=== PATIENT | female | born 1950 | race Caucasian/White ===

== ENCOUNTER → 2023-04-30 10:55 | Outpatient (BNVA) | payer MEDICAID, SELFPAY | PROVIDERS: PCP Registered Nurse; Visit Provider Registered Nurse | DX: Z13.6 Encounter for screening for cardiovascular disorders (principal); H26.9 Unspecified cataract; Z13.1 Encounter for screening for diabetes mellitus; Z13.29 Encounter for screening for other suspected endocrine disorder | CPT/HCPCS: 80053; 84443; 85025 ==

== ENCOUNTER → 2024-08-20 09:32 | Outpatient (BNVA) | payer MEDICAID, SELFPAY | PROVIDERS: PCP Registered Nurse; Visit Provider Registered Nurse | DX: R35.0 Frequency of micturition (principal) | CPT/HCPCS: 81000; 87086 ==

== ENCOUNTER 2024-08-25 10:27 | Emergency (ER) | payer MEDICAID, SELFPAY ==
[2024-08-25 10:48] VITALS: BP 174/96; PULSE 85; RESP 16; TEMP 36.8; O2SAT 96; BMI 28.7
[2024-08-25 11:07] LABS: Basophils # 0.1 10^3/uL (0.0-0.1); Eosinophils # 0.1 10^3/uL (0.0-0.8); Eosinophils % 0.8 %; Hematocrit 43.2 % (36-47); Lymphocytes # 1.5 10^3/uL (0.8-4.8); Lymphocytes % 24.6 %; Mean Corpuscular HGB Conc 32.9 g/dL (30-55); Mean Corpuscular Hemoglobin 30.1 pg (27-33); Mean Corpuscular Volume 91.7 fl (85-98); Mean Platelet Volume 11.3 fL (7.4-10.4); Monocytes # 0.4 10^3/uL (0.2-0.9); Monocytes % 6.4 %; Neutrophils # 4.11 10^3/uL (1.8-7.7); Neutrophils % 66.9 %; Nucleated Red Blood Cells % 0 %; Platelet Count 281 10^3/cmm (157-399); Red Blood Count 4.71 10^6/uL (3.85-5.65); Red Cell Distribution Width 12.7 % (12.1-15.1); White Blood Count 6.14 10^3/uL (3.29-11.43)
--- NOTE | 2024-08-25 11:17 | W.ED.ABDPA2 ---
HPI - Abdominal Pain General: Chief Complaint: Abdominal Pain Stated Complaint: abdominal pain Time Seen by Provider: 08/25/24 11:06 History of Present Illness: 74-year-old female presents emergency room with abdominal pain which he describes as intestinal problems for the last 3 weeks. She was like she has a difficult time with bowel movements. She has had some frequency urination was seen last week and evaluated in clinic the urine evaluation was normal at that time. She has not had any vomiting no hematochezia melena hematemesis or coffee-ground emesis. She had discolored stool today was greenish in nature. She has previously had a appendectomy. No fever sweats or chills. Associated Symptoms: Denies chills, dysuria and fever(s) Related Data Home Medications Medication Instructions Recorded Confirmed aspirin 325 mg tablet 650 mg PO Q6H PRN Pain 08/25/24 08/25/24 bismuth subsalicylate 262 mg 2 tab PO Q1H PRN Indigestion 08/25/24 08/25/24 chewable tablet (Pepto-Bismol) carica papaya (Papaya Enzyme 1 tab PO TID PRN Stomach Upset 08/25/24 08/25/24 tablet) lactobacillus combination no.4 3 3,000 mmu cells PO DAILY 08/25/24 08/25/24 billion cell capsule (Probiotic) multivitamin 1 tab PO DAILY 08/25/24 08/25/24 Allergies Allergy/AdvReac Type Severity Reaction Status Date / Time nickel Allergy Unknown Verified 08/20/24 09:10 norepinephrine Allergy ADR-Chest Verified 08/25/24 10:56 Pain Review of Systems Const: Denies: fever(s) or chills Card: Denies: chest pain Resp: Denies: dyspnea GI: Denies: abdominal pain : Denies: dysuria, urinary frequency or urinary urgency Musc: Denies: neck pain or back pain Skin/Breast: Denies: rash PFSH ED PFSH: Family History Sister Cancer breast Mother Tachycardia Parkinson disease Dementia Father Stroke Denies family history of Hypertension Social History Smoking and tobacco/nicotine status: never used tobacco/nicotine Alcohol intake: never Substance/Drug Use: never Adopted: No Caregiver/support person: No Lives independently: Yes service: No Current occupational status: retired Do you think of yourself as: Straight/Heterosexual Current gender identity: Female Physical Exam Const: GENERAL APPEARANCE: cooperative ORIENTATION/CONSCIOUSNESS: Yes awake, Yes oriented to person, Yes oriented to place and Yes oriented to time HENMT: COMMON NORMALS: normocephalic, atraumatic and hearing grossly normal bilaterally HEAD & SCALP: normocephalic and atraumatic Resp: COMMON NORMALS: normal respiratory effort, No retractions, No use of accessory muscles and clear to auscultation bilaterally AUSCULTATION: clear to auscultation bilaterally Cardio: COMMON NORMALS: regular rate, regular rhythm and No murmurs present (Cardio) RATE: regular rate RHYTHM: regular rhythm GI: COMMON NORMALS: Soft to palpation and No hepatosplenomegaly present AUSCULTATION: Yes normoactive bowel sounds PALPATION: Yes Soft to palpation, No Tenderness to palpation present (GI), No Guarding due to palpation present (GI) and Yes No hepatosplenomegaly present Extremity: COMMON NORMALS: normal to inspection, capillary refill normal, no clubbing, cyanosis or edema, no calf tenderness and no pedal edema Neuro: SENSORIUM/ORIENTATION: Yes oriented to person, Yes oriented to place and Yes oriented to time Skin: COMMON NORMALS: no rashes or lesions noted GENERAL SKIN EXAM: no rashes or lesions noted Course Vital Signs: Vital signs: Vital Signs Temperature 98.2 F 08/25/24 10:48 Pulse Rate 85 08/25/24 10:48 Respiratory Rate 16 08/25/24 10:48 Blood Pressure 174/96 08/25/24 10:48 Pulse Oximetry 96 08/25/24 10:48 Oxygen Delivery Me thod Room Air 08/25/24 10:48 MDM - Abdominal Pain Medical Decision Making Labs not show any clinically significant normalities CT is negative. Discharge patient home liquid diet for 24 to 40 hours and advance as tolerated no emergent findings noted. Medical Records I reviewed the patient's medical records. Lab Data I reviewed the patient's lab results. 08/25/24 10:58 08/25/24 10:58 Labs/Radiology: Radiology Impressions Abdomen/Pelvis CT 08/25/24 11:18 IMPRESSION: 1. Normal appendix. 2. No renal obstruction or calcifications. 3. Minimally distended urinary bladder with no intraluminal calcification. 4. No diverticulosis. 5. No ascites or adenopathy. Laboratory Results WBC 6.14 10^3/uL (3.29-11.43) 08/25/24 10:58 RBC 4.71 10^6/uL (3.85-5.65) 08/25/24 10:58 Hgb 14.20 g/dL (11.27-16.99) 08/25/24 10:58 Hct 43.2 % (36-47) 08/25/24 10:58 MCV 91.7 fl (85-98) 08/25/24 10:58 MCH 30.1 pg (27-33) 08/25/24 10:58 MCHC 32.9 g/dL (30-55) 08/25/24 10:58 RDW 12.7 % (12.1-15.1) 08/25/24 10:58 Plt Count 281 10^3/cmm (157-399) 08/25/24 10:58 MPV 11.3 fL (7.4-10.4) H 08/25/24 10:58 Neut % (Auto) 66.9 % 08/25/24 10:58 Lymph % (Auto) 24.6 % 08/25/24 10:58 [place] % (Auto) 6.4 % 08/25/24 10:58 Eos % (Auto) 0.8 % 08/25/24 10:58 Baso % (Auto) 1.0 % 08/25/24 10:58 Neut # (Auto) 4.11 10^3/uL (1.8-7.7) 08/25/24 10:58 Lymph # (Auto) 1.5 10^3/uL (0.8-4.8) 08/25/24 10:58 [place] # (Auto) 0.4 10^3/uL (0.2-0.9) 08/25/24 10:58 Eos # (Auto) 0.1 10^3/uL (0.0-0.8) 08/25/24 10:58 Baso # (Auto) 0.1 10^3/uL (0.0-0.1) 08/25/24 10:58 Nucleated RBC % (auto) 0 % 08/25/24 10:58 Nucleated RBCs # 0.0 /100WBC 08/25/24 10:58 Sodium 141 mmol/L (136-145) 08/25/24 10:58 Potassium 4.3 mmol/L (3.5-5.1) 08/25/24 10:58 Chloride 101 mmol/L (98-107) 08/25/24 10:58 Carbon Dioxide 27 mmol/L (22-29) 08/25/24 10:58 Anion Gap 17.3 (5-19) 08/25/24 10:58 BUN 10 mg/dL (8-23) 08/25/24 10:58 Creatinine 0.9 mg/dL (0.5-0.9) 08/25/24 10:58 GFR Calculation Not Reportable 08/25/24 10:58 Glucose 121 mg/dL (65-115) H 08/25/24 10:58 Calculated Osmolality 292 mOsm/kg (285-295) 08/25/24 10:58 Calcium 9.9 mg/dL (8.5-10.5) 08/25/24 10:58 Total Bilirubin 0.4 mg/dL (0.15-1.2) 08/25/24 10:58 AST 19 U/L (0-32) 08/25/24 10:58 ALT 15 U/L (0-33) 08/25/24 10:58 Alkaline Phosphatase 87 U/L (35-105) 08/25/24 10:58 Total Protein 7.4 g/dL (6.6-8.7) 08/25/24 10:58 Albumin 4.3 g/dL (3.5-5.2) 08/25/24 10:58 Globulin 3.1 g/dL (1.3-4.6) 08/25/24 10:58 Lipase 31 U/L (13-60) 08/25/24 10:58 Urine Color Yellow (Yellow) 08/25/24 11:50 Urine Appearance Clear (CLEAR) 08/25/24 11:50 Urine pH 7.5 (5-7) 08/25/24 11:50 Ur Specific [place] 1.005 (1.005-1.030) 08/25/24 11:50 Urine Protein Negative (Negative) 08/25/24 11:50 Urine Glucose (UA) Negative (Normal) 08/25/24 11:50 Urine Ketones Negative (Negative) 08/25/24 11:50 Urine Blood Negative (Negative) 08/25/24 11:50 Urine Nitrate Negative (Negative) 08/25/24 11:50 Urine Bilirubin Negative (Negative) 08/25/24 11:50 Urine Urobilinogen 0.2 mg/dL (Negative) 08/25/24 11:50 Ur Leukocyte Esterase Trace (Negative) A 08/25/24 11:50 Urine RBC 0-2 /hpf (0-2) 08/25/24 11:50 Urine WBC 0-5 /hpf (0-5) 08/25/24 11:50 Ur Squamous Epith Cells 0-5 /hpf (0-5) 08/25/24 11:50 Amorphous Sediment Not Reportable 08/25/24 11:50 Urine Bacteria None seen /hpf (NONE) 08/25/24 11:50 Hyaline Casts 0-4 /lpf H 08/25/24 11:50 All radiology interpretation(s) finalized by discharge Discharge Plan Discharge Patient Disposition: Home Clinical Impression: Abdominal pain Condition: Stable Prescriptions: No Action multivitamin Tablet 1 tab PO DAILY carica papaya [Papaya Enzyme] Tablet 1 tab PO TID PRN (Reason: Stomach Upset) Rx Instructions: administer with meals aspirin 325 mg Tablet 650 mg PO Q6H PRN (Reason: Pain) bismuth subsalicylate [Pepto-Bismol] 262 mg Tablet,Chewable 2 tab PO Q1H PRN (Reason: Indigestion) Rx Instructions: do not exceed 16 tabs per 24 hrs Probiotic 3 billion cell Capsule 3,000 mmu cells PO DAILY Rx Instructions: administer with a meal Discharge Orders: Discharge ED (Routine); Ordered 08/25/24 Ordered By: Milton Villalta Referrals: Evelio Orosco FNP [Primary Care Provider] - Discharge Diet: Usual diet Discharge Activity: Resume usual activity Patient Instructions: Abdominal Pain (ED), Opioid Safety, Pain Management Activity Restrictions/Additional Instructions: Thank you for choosing [facility] for your healthcare needs today. It is very important that you follow up as instructed or that you return to the Emergency Department should you have concerns or if your condition changes or worsens in any way. You were seen in the emergency room with complaint of abdominal discomfort. Your laboratory test did not show any clinically significant abnormalities. CT was unremarkable for acute pathology. Suspect it is bowel cramping or gastroenteritis. Follow-up with your primary care doctor. Recommend 24 to 48 hours of liquid diet and advance as tolerated Coding Level of Care Code ED Director Of Women'S Services for Jena Palmer
--- NOTE | 2024-08-25 11:18 | CT_ITS ---
WS: [id number] CT ABDOMEN AND PELVIS NONCONTRAST HISTORY: Abdominal pain, pain lower abdomen and LEFT lower quadrant. TECHNIQUE: Imaging performed through the abdomen and pelvis. Coronal and sagittal reformats are submi tted. All CT scans at [facility] use at least one of these dose optimization techniques: auto mated exposure control; mA and/or kV adjustment per patient size (includes targeted exams where dose is matched to clinical indication); or iterative reconstruction. DLP: 854.15 mGy.cm COMPARISON: None available. Lower thorax: Lung bases are clear. Visualized heart is normal. No hiatal hernia. Liver: Normal size liver. Low-attenuation mass posterior to the gallbladder fossa measures 7 mm. This is probably a cyst or benign hemangioma. Gallbladder: Normal gallbladder. No pericholecystic fluid or cholelithiasis. No gallbladder wall thic kening. Pancreas: Normal size and attenuation. Normal pancreatic duct. No pancreatitis or mass. Spleen: Normal. Adrenal glands: Normal. No mass. Right kidney: Normal size kidney with no mass or hydronephrosis. Left kidney: Normal size kidney with no mass or hydronephrosis. Aorta: Mild atherosclerosis abdominal aorta with no aneurysm. No free fluid, intraperitoneal air or significant lymphadenopathy. GI tract: No GI tract obstruction. Prior appendectomy. No colitis. No significant diverticular diseas e. Abdominal wall: Small umbilical hernia contains fat only. Pelvis: No free fluid or adenopathy in the pelvis. Urinary bladder is only minimally distended. No ca lcifications or wall thickening identified. Osseous structures: Advanced degenerative disc disease at L4-5. Loss of disc space with large anterio r bridging osteophytes and facet arthritis. Sclerotic bone island RIGHT ilium. CT/CT abdomen pelvis wo con [id number] IMPRESSION: 1. Normal appendix. 2. No renal obstruction or calcifications. 3. Minimally distended urinary bladder with no intraluminal calcification. 4. No diverticulosis. 5. No ascites or adenopathy.
[2024-08-25 11:27] LABS: Alanine Aminotransferase 15 U/L (0-33); Albumin Level 4.3 g/dL (3.5-5.2); Alkaline Phosphatase 87 U/L (35-105); Anion Gap 17.3 (5-19); Aspartate Amino Transferase 19 U/L (0-32); Blood Urea Nitrogen 10 mg/dL (8-23); Calcium 9.9 mg/dL (8.5-10.5); Carbon Dioxide 27 mmol/L (22-29); Chloride 101 mmol/L (98-107); Creatinine Clr Calc Pharmacy 71.2719; Globulin 3.1 g/dL (1.3-4.6); Glucose 121 mg/dL (65-115); Lipase 31 U/L (13-60); Osmolality Calculated 292 mOsm/kg (285-295); Potassium 4.3 mmol/L (3.5-5.1); Sodium 141 mmol/L (136-145); Total Bilirubin 0.4 mg/dL (0.15-1.2); Total Protein 7.4 g/dL (6.6-8.7)
[2024-08-25 12:08] LABS: Bilirubin Urine Negative (Negative); Blood Urine Negative (Negative); Glucose Urine UA Negative (Normal); Ketones Urine Negative (Negative); Leukocyte Esterase Urine Trace (Negative); Nitrate Urine Negative (Negative); Protein Urine Negative (Negative); Specific Gravity, Urine 1.005 (1.005-1.030); Urine Appearance Clear (CLEAR); Urine Color Yellow (Yellow); Urobilinogen Urine 0.2 mg/dL (Negative); pH Urine 7.5 (5-7)
[2024-08-25 12:13] LABS: Add Urine Microscopic? YES; Bacteria Urine None Seen /hpf; Hyaline Casts Urine 0-4 /lpf; RBC Urine 0-2 /hpf (0-2); Squamous Epithelial Cell Urine 0-5 /hpf (0-5); WBC Urine 0-5 /hpf (0-5)
[2024-08-25 12:14] LABS: Add Urine Culture? No
== END 2024-08-25 13:30 | disposition home or self-care (01) ==
PROVIDERS: Physician Assistant; Emergency Provider Family Medicine; PCP Registered Nurse
DX: R10.9 Unspecified abdominal pain (principal)
CPT/HCPCS: 36415; 74176; 80053; 81001; 83690; 85025; 99284

== ENCOUNTER → 2024-11-10 11:35 | Outpatient (BNVA) | payer MEDICAID, SELFPAY | PROVIDERS: PCP Registered Nurse; Visit Provider Registered Nurse | DX: R35.0 Frequency of micturition (principal) | CPT/HCPCS: 81000 ==

== ENCOUNTER → 2024-11-19 08:45 | Outpatient (BNVA) | payer MEDICAID, SELFPAY | PROVIDERS: PCP Registered Nurse; Visit Provider Student in an Organized Health Care Education/Training Program | DX: R19.4 Change in bowel habit (principal); R10.9 Unspecified abdominal pain | CPT/HCPCS: 99204 ==

== ENCOUNTER 2024-12-08 07:08 | Day surgery (SDC) | payer MEDICAID, SELFPAY ==
[2024-12-08 07:40] VITALS: BP 153/90; PULSE 93; RESP 18; TEMP 36.4; O2SAT 97; BMI 26.4
--- NOTE | 2024-12-08 07:59 | P.ANESASSM_ITS ---
Pre-Anesthetic Assessment Height/Weight: Height 1.83 m Weight 88.451 kg Temp Pulse Resp BP Pulse Ox O2 Del Method 97.5 F L 93 18 153/90 97 Room Air 12/08/24 07:40 12/08/24 07:40 12/08/24 07:40 12/08/24 07:40 12/08/24 07:40 12/08/24 07:40 Preop Diagnosis: GI Issues Operation Date: 12/08/24 08:30 Proposed Procedures p Colonoscopy 79689, G0105, R19.4(Not Applicable) - Lukas Ramirez MD Familial anesthetic complications: none Was Beta Jodi taken within 24 hours: N/A Was Clonidine taken within 24 hours: N/A Last intake: Intake Last Liquid Date 12/07/24 Last Liquid Time 22:00 Last Solid Date 12/06/24 Last Solid Time 20:00 Social No alcohol and No tobacco Exam alert, oriented x 3, clear to auscultation bilaterally and regular rate & rhythm Airway Submandibular: within normal limits Cervical ROM: within normal limits Mallampati: Class II Dentition: partials History/ROS No significant history except as noted and No significant complaints Pulmonary None reported CV/HEM None reported None reported Hepatic None reported GI None reported Metabolic Thyroid Disease [facility]/skel None reported Neuropsych Anxiety Anesthetic Plan ASA status: 2 Anesthesia: MAC Risk of > 500 ml blood loss (7ml/kg in children): No Medications/Allergies Home Medications ?Medication ?Instructions ?Recorded ?Confirmed ?Last Taken ?Type aspirin 325 mg tablet 650 mg PO Q6H PRN Pain 08/2512/08/24 1 Week Ago History ~12/01/24 carica papaya (Papaya Enzyme 1 tab PO TID PRN Stomach Upset 08/25/24 12/08/24 1 Week Ago History tablet) ~12/01/24 lactobacillus combination no.4 3 3,000 mmu cells PO DA [place] 08/25/24 12/08/24 12/07/24 History billion cell capsule (Probiotic) multivitamin 1 tab PO DAILY 08/25/24 05/0 01/2712/06/24 History minerals 1 tab PO DAILY 12/08/24 05/0 01/2712/07/24 History omega-3 fatty acids 1 cap PO DAILY 12/08/24 05/0 01/2712/07/24 History vit B complex vit C no.7 300 1 cap PO DAILY 12/08/24 0 12/08/24 12/07/24 History mg-folic acid 400 mcg-minerals capsule Allergies Allergy/AdvReac Type Severity Reaction Status Date / Time nickel Allergy Unknown Verified 12/02/24 09:45 norepinephrine Allergy ADR-Chest Verified 12/02/24 09:45 Pain PFSH Anesthesia Family History Sister Cancer breast Mother Tachycardia Parkinson disease Dementia Father Stroke Denies family history of Hypertension Social History Smoking and tobacco/nicotine status: never used tobacco/nicotine Alcohol intake: never Substance/Drug Use: never Adopted: No Caregiver/support person: No Lives independently: Yes service: No Current occupational status: retired Do you think of yourself as: Straight/Heterosexual Current gender identity: Female
[2024-12-08] MEDS: sodium chloride 0.9% 1,000 ML 15 ML IV (08:00)
--- NOTE | 2024-12-08 08:26 | W.PM.OPSUD ---
Surgery/Procedure H&P Update DATE OF PROCEDURE: December 08, 2024 DATE H&P PERFORMED: 11/19/24 H&P UPDATE INFORMATION: I have reviewed H&P completed within last 30 days, I have examined patient prior to procedure and No changes to prior documentation PREOP DIAGNOSIS: GI Issues PLANNED PROCEDURE: Operation Date: 12/08/24 08:30 Proposed Procedures p Colonoscopy 57682, G0105, R19.4(Not Applicable) - Lukas Ramirez MD
[2024-12-08 08:55] VITALS: BP 115/58; PULSE 73; RESP 18; TEMP 36.4; O2SAT 95
[2024-12-08 09:15] VITALS: BP 109/72; PULSE 67; RESP 18; O2SAT 96
[2024-12-08 09:22] VITALS: BP 110/80; PULSE 70; RESP 18; O2SAT 96
--- NOTE | 2024-12-08 09:35 | ANE.PACU2 ---
Inpatient post-anesthesia follow up: Airway intact: Yes Vital signs: Temperature 97.6 F Pulse Rate 70 Respiratory Rate 18 Blood Pressure 110/80 Pulse Oximetry 96 Oxygen Delivery Me thod Room Air Oxygen Flow Rate Fraction of Inspir ed Oxygen Hydration adequate: Yes Nausea and vomiting: No Pain level: 1 Mental status: Baseline
== END 2024-12-08 09:35 | disposition home or self-care (01) ==
PROVIDERS: PCP Registered Nurse; Visit Provider Student in an Organized Health Care Education/Training Program
PROC: 0DJD8ZZ Inspection of Lower Intestinal Tract, Via Natural or Artificial Opening Endoscopic (ICD-10-PCS; CPT 45378; principal; 2024-12-08 08:30)
DX: R19.7 Diarrhea, unspecified (principal); K59.00 Constipation, unspecified
CPT/HCPCS: 45378; J2704; J7030

== ENCOUNTER 2025-02-06 12:24 | Emergency (ER) | payer MEDICAID, SELFPAY ==
--- OUTSIDE RECORDS SUMMARY | 2025-02-06 12:28 | XMS_ITS | Clinical Summary ---
Author Organization [facility] Address [address] [place] [address] Phone Care Team Providers Care Revenue Inspector Name Role Phone Non-Staff, Physician Primary Care Provider Unava ilable Allergies No known active allergies Medications omeprazole (PRILOSEC) 10 mg Oral CpDR Take 10 mg by mouth daily. Active MULTIVITS,CA,SILK SPOOLER ALS/IRON/FA (CHILDREN'S MULTIVITAMINS ORAL) Take 1 Tab by mouth daily. Active Active Problems Problem Noted Date Diagnosed Date Neck pain 07/11/2011 Family History Medical History Relation Name Comments Hypertension Father Stroke Father Cancer Sister 1 Diabetes Sister 2 Relation Name Status Comments Father Sister 1 Sister 2 Social History Tobacco Use Types Packs/Day Years Used Date Smoking Tobacco: Never Alcohol Use Standard Drinks/Week Comments No 0 (1 standard drink = 0.6 oz pur e alcohol) Comments No Sex and Gender Information Value Date Recorded Sex Assigned at Not on file Legal Sex Female 1:08 PM CAR JOCKEY Gender Identity Not on file Sexual Orientation Not on file Last Filed Vital Signs Vital Sign Reading Time Taken Comments Blood Pressure 127/79 07/11/2011 2:31 PM CAR JOCKEY Pulse 98 07/11/2011 2:31 PM CAR JOCKEY Temperature 36.8 C (98.2 F) 07/11/2011 2:31 PM CAR JOCKEY Respiratory Rate 20 07/11/2011 2:31 PM CAR JOCKEY Oxygen Saturation 98% 07/11/2011 2:31 PM CAR JOCKEY Inhaled Oxygen Concentration - - Weight 83.9 kg (185 lb) 07/11/2011 2:31 PM CAR JOCKEY Height 182.9 cm (6') 07/11/2011 2:31 PM CAR JOCKEY Body Mass Index 25.09 07/11/2011 2:31 PM CAR JOCKEY Plan of Treatment Health Maintenance Due Date Last Done Comments DTAP/TDAP/TD VACCINES (1 - Tdap) 1969 BREAST CANCER SCREENING 1990 COLORECTAL SCREENING 1995 Colorectal Cancer Screening 1995 FIT-DNA Q 3 years 1995 FIT/FOBT Q 1 year 1995 Flex Sig/CT Colonography Q 5 years 1995 PNEUMOCOCCAL VACCINE 50+ YEARS (1 of 1 - PCV) 05/29/20 00 ZOSTER VACCINE (1 of 2) 2000 OSTEOPOROSIS SCREENING 2015 INFLUENZA VACCINE (#1) 2024 RSV VACCINE (60+ or ) (1 - 1-dose 75+ series) 2025 Care Teams Revenue Inspector Relationship Specialty Start Date End Date Non-Staff, Physician NO ADDRESS ON FILE PCP - General 06/29/11
--- OUTSIDE RECORDS SUMMARY | 2025-02-06 12:28 | XMS_ITS | Encounter Summary ---
Author Organization [facility] Address [address] [place] [address] Care Team Providers Care Gathering Machine Setter Name Role Phone Non-Staff, Physician Primary Care Provider Unava ilable Encounter Details Date Type Department Care Team (Late st Contact Info) Description 12/13/2012 Ancillary Orders [facility] General Laboratory Services [place] [address] [place] [address] Social History Tobacco Use Types Packs/Day Years Used Date Smoking Tobacco: Never Alcohol Use Standard Drinks/Week Comments No 0 (1 standard drink = 0.6 oz pur e alcohol) Comments No Sex and Gender Information Value Date Recorded Sex Assigned at Not on file Legal Sex Female 1:08 PM SCREW MACHINE TOOL SETTER Gender Identity Not on file Sexual Orientation Not on file documented as of this encounter Plan of Treatment Not on file documented as of this encounter Procedures Procedure Name Priority Date/Time Associated Diagnosis Comments CBC WITHOUT DIFFERENTIAL Routine 12/13/2012 8:00 AM CDT ALT Routine 12/13/2012 8:00 AM CDT TSH Routine 12/13/2012 8:00 AM CDT HEMOGLOBIN A1C Routine 12/13/2012 8:00 AM CDT CREATININE Routine 12/13/2012 8:00 AM CDT LIPID PANEL Routine 12/13/2012 8:00 AM CDT documented in this encounter Results * CREATININE (12/13/2012 8:00 AM CDT) CREATININE 0.80 0.60 - 1.30 mg/dL 12/13/2012 5:22 PM CDT [facility] GFR 73 >=60 mL/min/1.7 3 sq meter 12/13/2012 5:22 PM CDT [facility] GFR, 88 >=60 mL/min/1.7 3 sq meter 12/13/2012 5:22 PM CDT [facility] Blood specimen (specimen) 12/13/2012 8:00 AM CDT 12/13/2012 4:26 PM CDT Narrative [facility] - 12/13/2012 5:22 PM CDT eGFR has not been validated for use in the elderly (> 70 years of age), women, patients with serious co-morbid conditions, or persons with extremes of body size or muscle mass and should also be interpreted with caution in patients with acute kidney failure, dialysis dependant patients, patients reporting exceptional dietary intake (e.g. vegetarian diet, high protein diets, creatine supplementation), and patients with severe liver disease. Based on National Kidney Disease Education Program us External Provider Mtnv CHEMISTRY ORDERABLES l Result Performing Organization Address [facility] Co de Phone Number [facility] CLIA # [id number] [address] [place] [phone] * (ABNORMAL) ALT (12/13/2012 8:00 AM CDT) ALT 22(L) 30 - 65 U/L 12/13/2012 5:22 PM CDT [facility] Blood specimen (specimen) 12/13/2012 8:00 AM CDT 12/13/2012 4:26 PM CDT External Provider Mtn CHEMISTRY ORDERABLES l Result Performing Organization Address City/[facility] Co de Phone Number [facility] CLIA # [id number] [address] [place] [phone] * (ABNORMAL) CBC WITHOUT DIFFERENTIAL (12/13/2012 8:00 AM CDT) WBC 5.3 4.0 - 10.0 K/uL 12/15/2012 12:53 PM CDT [facility] RBC 4.39 3.93 - 5.22 M/uL 12/15/2012 12:53 PM CDT [facility] HEMOGLOBIN 13.6 11.2 - 15.7 g/dL 12/15/2012 12:53 PM CDT [facility] HEMATOCRIT 42.2 34.1 - 44.9 % 12/15/2012 12:53 PM CDT [facility] MCV 96.1(H) 79.4 - 94.8 fL 12/15/2012 12:53 PM CDT [facility] MCH 31.0 25.6 - 32.2 pg 12/15/2012 12:53 PM CDT [facility] MCHC 32.2 32.2 - 35.5 g/dL 12/15/2012 12:53 PM CDT [facility] PLATELETS 275 163 - 337 K/uL 12/15/2012 12:53 PM CDT [facility] MPV 13.4 10.0 - 14.8 fL 12/15/2012 12:53 PM CDT [facility] RDW 14.0 11.0 - 14.5 % 12/15/2012 12:53 PM CDT [facility] RDW-STDEV 47.9 37.0 - 54.0 fL 12/15/2012 12:53 PM CDT [facility] Blood specimen (specimen) 12/13/2012 8:00 AM CDT 12/15/2012 12:15 PM CDT us External Provider Mtnv HEMATOLOGY ORDERABLES Fin al Result [facility] CLIA # [id number] [address] [place] [phone] * TSH (12/13/2012 8:00 AM CDT) TSH 2.04 0.30 - 4.80 uIU/mL 12/13/2012 5:22 PM CDT [facility] [place] [facility] Blood specimen (specimen) 12/13/2012 8:00 AM CDT 12/13/2012 4:26 PM CDT External Provider Mtnv CHEMISTRY ORDERABLES l Result Performing Organization Address City/[facility]/ZIP Co de Phone Number [facility] CLIA # [id number] [address] [place] [phone] * HEMOGLOBIN A1C (12/13/2012 8:00 AM CDT) HEMOGLOBIN A1C 6.0 4.5 - 6.2 % 12/15/2012 1:11 PM CDT [facility] [place] [facility] EST. AVG GLUCOSE, A1C 126 mg/dL 12/15/2012 1:11 PM CDT [facility] Blood specimen (specimen) 12/13/2012 8:00 AM CDT 12/15/2012 1:10 PM CDT External Provider Mtnv CHEMISTRY ORDERABLES l Result Performing Organization Address [facility] Co de Phone Number [facility] CLIA # [id number] [address] [place] [phone] * (ABNORMAL) LIPID PANEL (12/13/2012 8:00 AM CDT) CHOLESTEROL 181 130 - 200 mg/dL 12/13/2012 5:22 PM CDT [facility] [place] [facility] TRIGLYCERIDE 68 30 - 200 mg/dL 12/13/2012 5:22 PM CDT [facility] [place] [facility] HDL 58 35 - 80 mg/dL 12/13/2012 5:22 PM CDT [facility] [place] [facility] LDL CALCULATED 109(H) 0 - 100 mg/dL 12/13/2012 5:22 PM CDT [facility] [place] [facility] Blood specimen (specimen) 12/13/2012 8:00 AM CDT 12/13/2012 4:26 PM CDT Narrative [facility] SERVICES - [place] - 12/13/2012 5:22 PM CDT TOTAL CHOLESTEROL mg/dL Desirable <200 Borderline high 200-239 High >=240 TRIGLYCERIDES mg/dL Normal <150 Borderline high 150-199 High 200-499 Very high >=500 HDL CHOLESTEROL mg/dL Low <40 Normal 40-60 Desirable >60 LDL CHOLESTEROL mg/dL Optimal <100 Low risk 100-129 Borderline high 130-159 High 160-189 Very high >=190 Based on AHA/NCEP Guidelines us External Provider Mtnv CHEMISTRY ORDERABLES l Result [facility] SERVICES [facility] CLIA # [id number] [address] [place] [address] documented in this encounter Visit Diagnoses Not on filedocumented in this encounter Care Teams Gathering Machine Setter Relationship Specialty Start Date End Date Non-Staff, Physician NO ADDRESS ON FILE PCP - General 06/29/11 documented as of this encounter
--- OUTSIDE RECORDS SUMMARY | 2025-02-06 12:28 | XMS_ITS | Clinical Summary ---
Author Organization [facility] Address [address] [place]: Epic Prelude ADT LANI SAAVEDRA [address] Care Team Providers Care Newscast Director Name Role Phone Non-Staff, Physician Primary Care Provider Unava ilable Allergies Active Allergy Reactions Criticality Noted Date Comments Nickel Unknown 06/11/2023 Norepinephrine Palpitations Low 07/05/2023 Medications Bilberry 100 mg Capsule Take 1 Capsule by mouth daily. Active Vit C-Vit T-Jcipkk-MoEu-L utein (PRESERVISION) 226-90-0.8-5 mg Capsule Take 1 Capsule by mouth daily. Active Saccharomyces boulardii (FLORASTOR) 250 mg Capsule Take by mouth. Acti ve zinc sulfate 110 mg (25 mg zinc) Tablet Take 110 mg by mouth one time only. Active cholecalciferol , vitamin D3, 5,000 unit Take 400 Units by mouth daily. Active omeprazole (PriLOSEC) 10 mg Capsule, Delayed Release(E.C.) Take 10 mg by mouth daily. Active ofloxacin (OCUFLOX) 0.3 % solution 1 Drop by See Admin Instructions route 4 times daily. Active Active Problems Problem Noted Date Diagnosed Date Neck pain 07/11/2011 Encounters Date Type Department Care Team Description 01/26/2025 External Device Data [facility] ABSTRACTION Provider, Abstract 01/19/2025 External Device Data [facility] ABSTRACTION Provider, Abstract 12/29/2024 External Device Data [facility] ABSTRACTION Provider, Abstract 12/24/2024 External Device Data [facility] ABSTRACTION Provider, Abstract 12/23/2024 External Device Data [facility] ABSTRACTION Provider, Abstract 12/23/2024 External Device Data [facility] ABSTRACTION Provider, Abstract 12/22/2024 External Device Data [facility] ABSTRACTION Provider, Abstract from Last 3 Months Family History Medical History Relation Name Comments Hypertension Father Stroke Father Diabetes Sister 1 Cancer Sister 2 Relation Name Status Comments Father Sister 1 Sister 2 Social History Tobacco Use Types Packs/Day Years Used Date Smoking Tobacco: Never Alcohol Use Standard Drinks/Week Comments No 0 (1 standard drink = 0.6 oz pur e alcohol) Feeling Safe Answer Date Recorded Are you in a relationship wi th someone who hurts you emotionally and/or physically? 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 Gender Identity Not on file Sexual Orientation Not on file Last Filed Vital Signs Vital Sign Reading Time Taken Comments Blood Pressure 149/70 02/26/2024 11:47 AM CDT Pulse 71 02/26/2024 11:47 AM CDT Temperature 36.2 C (97.1 F) 02/26/2024 11:47 AM CDT Respiratory Rate 16 02/26/2024 11:47 AM CDT Oxygen Saturation 99% 02/26/2024 11:47 AM CDT Inhaled Oxygen Concentration - - Weight 93.4 kg (206 lb) 02/26/2024 9:14 AM CDT Height 182.9 cm (6') 02/26/2024 9:14 AM CDT Body Mass Index 27.94 02/26/2024 9:14 AM CDT Plan of Treatment Health Maintenance Due Date [...] 2000 OSTEOPOROSIS SCREENING 2015 INFLUENZA VACCINE (#1) 2025 RSV VACCINE (60+ or ) (1 - 1-dose 75+ series) 2025 Medical Devices Implanted Type Area Maintenance Groundskeeper Device Identifier Shelf Expiration Date Model / Serial / Lot Lens Iol Madhavi Blake 19.0 [id number] - [id number] Implanted:Qty: 1 on 07/10/2023 by Clive Landers MD at [facility] Lens Right: Eye [employer] 01/29/2026 [id number] / [id number] / Lens Iol Madhavi Blake 19.5 [id number] - [id number] Implanted:Qty: 1 on 02/26/2024 by Clive Landers MD at [facility] Lens Left: Eye [employer] 01/30/2026 [id number] / [id number] / Insurance MEDICAID [place] Advance Directives For more information, please contact: [phone] * Full Code (Latest Code Status on File) Date Activated Date Inactivated Comments 02/26/2024 11:12 AM 02/26/2024 1:58 PM Care Teams Newscast Director Relationship Specialty Start Date End Date Non-Staff, Physician NO ADDRESS ON FILE PCP - General 06/29/11
[2025-02-06 12:43] VITALS: BP 163/75; PULSE 96; RESP 17; TEMP 37.1; O2SAT 99; BMI 26.4
[2025-02-06 13:33] LABS: Glucose Urine UA Negative (Normal); Nitrate Urine Negative (Negative); Specific Gravity, Urine 1.005 (1.005-1.030)
[2025-02-06 13:37] LABS: Add Urine Microscopic? YES
[2025-02-06 13:41] LABS: Hematocrit 43.7 % (36-47); Hemoglobin 13.80 g/dL (11.27-16.99); Mean Corpuscular HGB Conc 31.6 g/dL (30-55); Mean Corpuscular Hemoglobin 30.5 pg (27-33); Mean Corpuscular Volume 96.5 fl (85-98); Nucleated Red Blood Cells % 0 %; Platelet Count 279 10^3/cmm (157-399); Red Blood Count 4.53 10^6/uL (3.85-5.65); White Blood Count 8.57 10^3/uL (3.29-11.43)
[2025-02-06 13:59] LABS: Alanine Aminotransferase 11 U/L (0-33); Albumin Level 4.0 g/dL (3.5-5.2); Alkaline Phosphatase 86 U/L (35-105); Anion Gap 15.4 (5-19); Aspartate Amino Transferase 14 U/L (0-32); Blood Urea Nitrogen 16 mg/dL (8-23); Calcium 9.6 mg/dL (8.5-10.5); Carbon Dioxide 26 mmol/L (22-29); Chloride 100 mmol/L (98-107); Creatinine Clr Calc Pharmacy 68.6016; Globulin 3.4 g/dL (1.3-4.6); Glucose 136 mg/dL (65-115); Lipase 32 U/L (13-60); Osmolality Calculated 287 mOsm/kg (285-295); Potassium 4.4 mmol/L (3.5-5.1); Sodium 137 mmol/L (136-145); Total Protein 7.4 g/dL (6.6-8.7)
[2025-02-06 14:28] VITALS: BP 181/100; PULSE 60; RESP 16; O2SAT 98
[2025-02-06 14:30] VITALS: BP 181/100; O2SAT 99
--- NOTE | 2025-02-06 14:39 | ED_ITS ---
HPI - Abdominal Pain 2 General: Chief Complaint: Abdominal Pain Stated Complaint: abd pain Time Seen by Provider: 02/06/25 14:24 History of Present Illness: 74-year-old female presents emergency ro om complaining of intermittent chronic abdominal pain this been going on it was only for 1 to 2 years. She has had extensive workup including EGD colonoscopy CT has not had any significant findings as at times of large bowel movement she feels very weak afterwards other times feels like she has bladder infection. She denies any medic easy melena hematemesis or coffee-ground emesis. She relates some of her symptoms of feeling almost as if she is having menstrual cramps she has not had any vaginal bleeding she denies any chest pain. There is no acute abdominal pain at this time. No fever sweats or chills Associated Symptoms: Reports nausea and vomiting; Denies chills, dysuria and fever(s) Related Data Home Medications ?Medication ?Instructions ?Recorded ?Confirmed aspirin 325 mg tablet 650 mg PO Q6H PRN Pain 08/2501/26/25 carica papaya (Papaya Enzyme 1 tab PO TID PRN Stomach Upset 08/25/24 01/26/25 tablet) lactobacillus combination no.4 3 3,000 mmu cells PO DA KAROLINA 08/25/24 01/26/25 billion cell capsule (Probiotic) multivitamin 1 tab PO DAILY 08/25/2401/04 minerals 1 tab PO DAILY 12/08/2401/04 omega-3 fatty acids 1 cap PO DAILY 12/08/2401/04 vit B complex vit C no.7 300 1 cap PO DAILY 12/08/24 0 01/26/25 mg-folic acid 400 mcg-minerals capsule daily blend I PO 2XD 01/26/25 digest forte PO 1XD 01/26/25 docosahexaenoic acid 200 mg mg PO 01/26/25 01/26/25 capsule (Algal Orland-3 DHA) mineral blend PO 1XD 01/26/25 Previous Rx's ?Medication ?Instructions ?Recorded pantoprazole 40 mg tablet,delayed 40 mg PO DAILY #30 t abs 02/06/25 release Allergies Allergy/AdvReac Type Severity Reaction Status Date / Time nickel Allergy Unknown Verified 01/26/25 13:03 norepinephrine Allergy ADR-Chest Verified 01/26/25 13:03 Pain Review of Systems 2 Const: Denies: fever(s) or chills Card: Denies: chest pain Resp: Denies: dyspnea GI: Reports: abdominal pain, nausea and vomiting : Denies: dysuria, urinary frequency or urinary urgency Musc: Denies: neck pain or back pain Skin/Breast: Denies: rash PFSH ED 2 PFSH: Family History Sister Cancer breast Mother Tachycardia Parkinson disease Dementia Father Stroke Denies family history of Hypertension Social History Smoking and tobacco/nicotine status: never used tobacco/nicotine Alcohol intake: never Substance/Drug Use: never Adopted: No Caregiver/support person: No Lives independently: Yes service: No Current occupational status: retired Do you think of yourself as: Straight/Heterosexual Current gender identity: Female Physical Exam 2 Const: GENERAL APPEARANCE: cooperative ORIENTATION/CONSCIOUSNESS: Yes awake, Yes oriented to person, Yes oriented to place and Yes oriented to time HENMT: COMMON NORMALS: normocephalic, atraumatic and hearing grossly normal bilaterally HEAD & SCALP: normocephalic and atraumatic Resp: COMMON NORMALS: normal respiratory effort, No retractions, No use of accessory muscles and clear to auscultation bilaterally AUSCULTATION: clear to auscultation bilaterally Cardio: COMMON NORMALS: regular rate, regular rhythm and No murmurs present (Cardio) RATE: regular rate RHYTHM: regular rhythm GI: COMMON NORMALS: Soft to palpation and No hepatosplenomegaly present A USCULTATION: Yes normoactive bowel sounds PALPATION: Yes Soft to palpation, No Tenderness to palpation present (GI), No Guarding due to palpation present (GI) and Yes No hepatosplenomegaly present Extremity: COMMON NORMALS: normal to inspection, capillary refill normal, no clubbing, cyanosis or edema, no calf tenderness and no pedal edema Neuro: SENSORIUM/ORIENTATION: Yes oriented to person, Yes oriented to place and Yes oriented to time Skin: COMMON NORMALS: no rashes or lesions noted GENERAL SKIN EXAM: no rashes or lesions noted Course 2 Vital Signs: Vital signs: Vital Signs Temperature 98.8 F 02/06/25 12:43 Pulse Rate 60 02/06/25 14:28 Respiratory Rate 16 02/06/25 14:28 Blood Pressure 181/100 02/06/25 14:30 Pulse Oximetry 99 02/06/25 14:30 Oxygen Delivery Me thod Room Air 02/06/25 12:43 MDM - Abdominal Pain Medical Decision Making Benign abdominal exam unremarkable laboratory test. Patient has had extensive workup in the past. At this point given to her description of having a hiatal hernia I think starting a PPI would be in order follow-up with her primary care doctor can refer to GI if appropriate Medical Records I reviewed the patient's medical records. Lab Data I reviewed the patient's lab results. 02/06/25 13:34 02/06/25 13:34 Labs/Radiology: Laboratory Results WBC 8.57 10^3/uL (3.29-11.43) 02/06/25 13:34 RBC 4.53 10^6/uL (3.85-5.65) 02/06/25 13:34 Hgb 13.80 g/dL (11.27-16.99) 02/06/25 13:34 Hct 43.7 % (36-47) 02/06/25 13:34 MCV 96.5 fl (85-98) 02/06/25 13:34 MCH 30.5 pg (27-33) 02/06/25 13:34 MCHC 31.6 g/dL (30-55) 02/06/25 13:34 RDW 12.7 % (12.1-15.1) 02/06/25 13:34 Plt Count 279 10^3/cmm (157-399) 02/06/25 13:34 MPV 11.5 fL (7.4-10.4) H 02/06/25 13:34 Neut % (Auto) 76.4 % 02/06/25 13:34 Lymph % (Auto) 17.4 % 02/06/25 13:34 Beauregard % (Auto) 4.8 % 02/06/25 13:34 Eos % (Auto) 0.5 % 02/06/25 13:34 Baso % (Auto) 0.7 % 02/06/25 13:34 Neut # (Auto) 6.55 10^3/uL (1.8-7.7) 02/06/25 13:34 Lymph # (Auto) 1.5 10^3/uL (0.8-4.8) 02/06/25 13:34 Beauregard # (Auto) 0.4 10^3/uL (0.2-0.9) 02/06/25 13:34 Eos # (Auto) 0.0 10^3/uL (0.0-0.8) 02/06/25 13:34 Baso # (Auto) 0.1 10^3/uL (0.0-0.1) 02/06/25 13:34 Nucleated RBC % (auto) 0 % 02/06/25 13:34 Nucleated RBCs # 0.0 /100WBC 02/06/25 13:34 Sodium 137 mmol/L (136-145) 02/06/25 13:34 Potassium 4.4 mmol/L (3.5-5.1) 02/06/25 13:34 Chloride 100 mmol/L (98-107) 02/06/25 13:34 Carbon Dioxide 26 mmol/L (22-29) 02/06/25 13:34 Anion Gap 15.4 (5-19) 02/06/25 13:34 BUN 16 mg/dL (8-23) 02/06/25 13:34 Creatinine 0.9 mg/dL (0.5-0.9) 02/06/25 13:34 GFR Calculation Not Reportable 02/06/25 13:34 Glucose 136 mg/dL (65-115) H 02/06/25 13:34 Calculated Osmolality 287 mOsm/kg (285-295) 02/06/25 13:34 Calcium 9.6 mg/dL (8.5-10.5) 02/06/25 13:34 Total Bilirubin 0.3 mg/dL (0.15-1.2) 02/06/25 13:34 AST 14 U/L (0-32) 02/06/25 13:34 ALT 11 U/L (0-33) 02/06/25 13:34 Alkaline Phosphatase 86 U/L (35-105) 02/06/25 13:34 Total Protein 7.4 g/dL (6.6-8.7) 02/06/25 13:34 Albumin 4.0 g/dL (3.5-5.2) 02/06/25 13:34 Globulin 3.4 g/dL (1.3-4.6) 02/06/25 13:34 Lipase 32 U/L (13-60) 02/06/25 13:34 Urine Color Yellow (Yellow) 02/06/25 13:10 Urine Appearance Clear (CLEAR) 02/06/25 13:10 Urine pH 6.0 (5-7) 02/06/25 13:10 Ur Specific Fluker 1.005 (1.005-1.030) 02/06/25 13:10 Urine Protein Negative (Negative) 02/06/25 13:10 Urine Glucose (UA) Negative (Normal) 02/06/25 13:10 Urine Ketones Negative (Negative) 02/06/25 13:10 Urine Blood Negative (Negative) 02/06/25 13:10 Urine Nitrate Negative (Negative) 02/06/25 13:10 Urine Bilirubin Negative (Negative) 02/06/25 13:10 Urine Urobilinogen 0.2 mg/dL (Negative) 02/06/25 13:10 Ur Leukocyte Esterase Negative (Negative) 02/06/25 13:10 Urine RBC 0-2 /hpf (0-2) 02/06/25 13:10 Urine WBC 0-5 /hpf (0-5) 02/06/25 13:10 Ur Squamous Epith Cells 0-5 /hpf (0-5) 02/06/25 13:10 Amorphous Sediment Not Reportable 02/06/25 13:10 Urine Bacteria None seen /hpf (NONE) 02/06/25 13:10 Hyaline Casts 0-4 /lpf H 02/06/25 13:10 No radiology studies performed this visit Discharge Plan Discharge Patient Disposition: Home Clinical Impression: Chronic abdominal pain Condition: Stable Prescriptions: New pantoprazole 40 mg tablet,delayed release (DR/EC) 40 mg PO DAILY Qty: 30 0RF No Action Algal Orland-3 DHA 200 mg capsule PO daily blend I PO 2XD digest forte PO 1XD mineral blend PO 1XD multivitamin Tablet 1 tab PO DAILY Papaya Enzyme Tablet 1 tab PO TID PRN (Reason: Stomach Upset) Rx Instructions: administer with meals aspirin 325 mg Tablet 650 mg PO Q6H PRN (Reason: Pain) Probiotic 3 billion cell Capsule 3,000 mmu cells PO DAILY Rx Instructions: administer with a meal minerals Tablet 1 tab PO DAILY omega-3 fatty acids Capsule 1 cap PO DAILY vit B comp,C comb no.7-FA-min 300-400 mg-mcg Capsule 1 cap PO DAILY Discharge Orders: Discharge ED (Routine); Ordered 02/06/25 Ordered By: Milton Villalta Referrals: Evelio Orosco, LION [Primary Care Provider, [facility]] Discharge Diet: Usual diet Discharge Activity: Increase activity as tolerated Patient Instructions: Opioid Safety, Pain Management, Patient Portal & Eliud Instructions Activity Restrictions/Additional Instructions: [facility]. It is very important that you follow up as instructed or that you return to the Emergency Department should you have concerns or if your condition changes or worsens in any way. You were seen emergency room with complaints of abdominal pain nausea and weakness. Urine was normal your laboratory tests were normal. Recommend you follow-up with your primary care doctor regarding further evaluation including possible referral to GI. Recommend you also start taking pantoprazole 40 mg once daily. Print Language: Bulgarian Coding Level of Care Code ED Copyright Manager for Jena Palmer
[2025-02-06 14:46] VITALS: BP 179/74; PULSE 68; RESP 16; O2SAT 98
== END 2025-02-06 14:47 | disposition home or self-care (01) ==
PROVIDERS: Emergency Provider Family Medicine; PCP Registered Nurse
DX: R10.9 Unspecified abdominal pain (principal); Z79.82 Long term (current) use of aspirin
CPT/HCPCS: 80053; 81001; 83690; 85025; 99283

== ENCOUNTER 2025-02-19 07:01 | Outpatient (CLI) | payer MEDICAID, SELFPAY ==
--- NOTE | 2025-02-19 07:15 | USCV_ITS ---
Sailaja Gallagher Age: 74 Gender: F : 1950 Exam Date: 02/19/2025 07:44 Ordering Phys: Evelio Orosco MANAGER NC Technologist: Mendel Murguia [place] [facility] [place]: rheumatic tricuspid insufficiency BP: 140 / 80 HR: 62 Rhythm: Sinus Technical Quality: Adequate MEASUREMENTS (Male / Female) Normal Values 2D ECHO LV Diastolic Diameter PLAX 5.0 cm 4.2 - 5.9 / 3.9 - 5.3 cm IVS Diastolic Thickness 1.5 cm 0.6 - 1.0 / 0.6 - 0.9 cm IVS Systolic Thickness 1.7 cm LVPW Diastolic Thickness 1.7 cm 0.6 - 1.0 / 0.6 - 0.9 cm LVPW Systolic Thickness 2.6 cm LVOT Diameter 2.2 cm LV Ejection Fraction 2D Teich 66.3 % LV Ejection Fraction MOD 4C 59.2 % LV Ejection Fraction MOD 2C 54.9 % LV Ejection Fraction 2C AL 55.3 % LA Diameter 3.1 cm RA Systolic Volume 4C AL 31.7 ml RA Systolic Volume 4C MOD 31.4 ml LA Sys Volume AL 39.8 cm cubed LA Sys Volume Index AL 18.6 cm cubed/m squared Aorta at Sinotubular Diameter 2.5 cm IVC Diameter 1.5 cm M-MODE LA Ao Ratio MM 1.0 AV Cusp Separation MM 2.0 cm DOPPLER AV Peak Velocity 108.0 cm/s LVOT Peak Velocity 82.0 cm/s AV Area Cont Eq vti 3.1 cm squared AV Area Cont Eq pk 2.8 cm squared MV Peak Velocity 81.0 cm/s MV Area PHT 4.8 cm squared Mitral E to A Ratio 0.8 TV Peak Velocity 302.5 cm/s TR Peak Velocity 318.0 cm/s TR Peak Gradient 40.4 mmHg TR Mean Velocity 251.0 cm/s TR Mean Gradient 27.0 mmHg TR Velocity Time Integral 87.9 cm PV Peak Velocity 82.0 cm/s RV Ejection Time 0.3 s FINDINGS Left Ventricle Normal left ventricular size and systolic function, EF 55%.mild left ventricular hypertrophy. No regional wall motion abnormalities. Grade I/IV diastolic dysfunction (abnormal relaxation filling pattern), normal to mildly elevated filling pressures. Right Ventricle The right ventricle is normal in size and function. Right Atrium The right atrium is normal in size. Left Atrium The left atrium is normal in size. Mitral Valve Trace mitral valve regurgitation. Aortic Valve No gross abnormalities noted Tricuspid Valve Trace tricuspid valve regurgitation. Estimated pulmonary artery peak systolic pressure 30 mmHg Pulmonic Valve Pulmonic valve not well visualized. Pericardium Normal pericardium without effusion. Aorta Normal ascending aorta dimension. IVC Normal inferior vena cava. CONCLUSIONS Normal left ventricular size and systolic function, EF 55%.mild left ventricular hypertrophy. No regional wall motion abnormalities. Grade I/IV diastolic dysfunction (abnormal relaxation filling pattern), normal to mildly elevated filling pressures. Trace mitral valve regurgitation. Trace tricuspid valve regurgitation. Estimated pulmonary artery peak systolic pressure 30 mmHg. There is no pericardial effusion. There are no intracardiac masses. No similar previous studies are available for comparison Dr Jayjay Russ MD [facility] (Electronically Signed) Final Date: 19 February 2025 17:31 S
== END 2025-02-19 07:02 | disposition home or self-care (01) ==
LOC: RAD 07:02
PROVIDERS: PCP Registered Nurse; Visit Provider Registered Nurse
DX: I07.1 Rheumatic tricuspid insufficiency (principal); R93.1 Abnormal findings on diagnostic imaging of heart and coronary circulation
CPT/HCPCS: 93306